=== PATIENT | male | born 2000 | race Hispanic/Latino ===

== ENCOUNTER 2019-09-19 15:06 | Emergency (ER) | payer SELFPAY ==
[~2019-09-19] VITALS: Ht 170.2 cm; Wt 65.8 kg
--- OUTSIDE RECORDS SUMMARY | 2019-09-19 15:09 | XMS REPORT | Continuity of Care Document ---
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 NORMAL RATIO (test code = INR) 1.0 0.8-1.2 N The therapeutic range for oral anticoagulant therapy formost indications is an international normalized ratio (INR)of between 2.0 and 3.0. The recommended therapeutic INRrange for various clinical situations is listed below: Clinical Situation INR range Pulmonary e mbolism treatment (2.0-3.0)Venous thrombosis treatmentVenous thrombosis prophylaxis (high risk surgery)Prevention of systemic embolism from: Acute myocardial infarction Valvular heart disease Atrial fibrillation Mechanical prosthetic heart valves (2.5-3.5) IS PATIENT ON ANTICOAGULANTS? NTHROMBOPLASTIN TIME [id number] 15:25:00* Test Item Value Reference Range Interpretation Comments THROMBOPLASTIN TIME PARTIAL (test code = PTT) 31.9 seconds 25.0-36. 5 N IS PATIENT ON ANTICOAGULANTS? NCBC W/O [id number] 15:08:00* Test Item Value Reference Range Interpretation Comments WHITE BLOOD CELL (test code = WBC) K/mm3 4.5-12.5 RED BLOOD CELL (test code = RBC) mill/mm3 4.0-5.8 HEMOGLOBIN (test code = HGB) 15.5 gram/dL 13.0-17.5 N HEMATOCRIT (test code = HCT) 47.3 % 42.0-52.0 N MEAN CELL VOLUME (test code = MCV) fL 80-98 MEAN CELL HGB (test code = MCH) picogram 27.0-33.0 MEAN CELL HGB CONCETRATION (test code = MCHC) gram/dL 33.0-36. 0 RED CELL DISTRIBUTION WIDTH (test code = RDW) % 11.6-16. 2 PLATELET COUNT (test code = PLT) K/mm3 150-450 MEAN PLATELET VOLUME (test code = MPV) fL 6.7-11.0 CBC W/O [id number] 15:08:00* Test Item Value Reference Range Interpretation Comments WHITE BLOOD CELL (test code = WBC) 16.7 K/mm3 4.5-12.5 H RED BLOOD CELL (test code = RBC) 4.98 mill/mm3 4.0-5.8 N HEMOGLOBIN (test code = HGB) 15.5 gram/dL 13.0-17.5 N HEMATOCRIT (test code = HCT) 47.3 % 42.0-52.0 N MEAN CELL VOLUME (test code = MCV) 95.0 fL 80-98 N MEAN CELL HGB (test code = MCH) 31.1 picogram 27.0-33.0 N MEAN CELL HGB CONCETRATION (test code = MCHC) 32.8 gram/dL 33.0-36. 0 L RED CELL DISTRIBUTION WIDTH (test code = RDW) 12.7 % 11.6-16. 2 N PLATELET COUNT (test code = PLT) 172 K/mm3 150-450 N MEAN PLATELET VOLUME (test code = MPV) 11.9 fL 6.7-11.0 H [id number] 14:47:00* Test Item Value Reference Range Interpretation Comments GLUBED (test code = GLUBED) 126 mg/dL 74-106 H Performed by certified foil stamp operator at [facility] - XR KNEE 3 V [id number] 13:33:00 FAX: Lauren Blackwood DO [place]: [address]: REG Name: Frantz THADARIANAMARIO [facility] : [birth year] Age/S: 18/M [address] [facility] Unit #: [id number] Loc: [place] [address] Phys: Lauren Blackwood DO Acct: [id number] Dis Date: Status: REG ER PHONE #: [phone] Exam Date: 01/25/2019 1326 FAX #: [phone] Reason: KNEE PAIN EXAMS: CPT CODE: [id number] XR KNEE 3 V RT [id number] REASON FOR EXAM: KNEE PAIN EXAM ORDER DATE: 01/25/2019 12:55 PM Ordering Drew: Lauren Balckwood DO PROCEDURE: - XR KNEE 3 V RT FINDINGS: 3 views of the right knee were obtained. The osseous structures are unremarkable in size and shape. The joint spaces are ma intained. No evidence of fracture. No evidence of joint effusion. The patella is intact IMPRESSION: Unremarkable right knee * * at 1681 Reported and signed by: Josemanuel Mahoney M.D. CC: Boubacar Blackwood DO Technologist: RT GREG(R) Trnscrd Date/Time/By: 01/25/2019 (4070) : By: MorganL Orig Print D/T: S: 01/25/2019 (6229) PAGE 1 Signed Report - XR ANKLE 3 + V [id number] 13:33:00 FAX: Lauren Blackwood DO [place]: [address]: REG Name: Frantz THADARIANAMARIO [facility] : [birth year] 00 Age/S: 18/M [address] [facility] Unit #: [id number] Loc: [place] [address] Phys: Lauren Blackwood DO Acct: [id number] Dis Date: Status: REG ER PHONE #: [phone] Exam Date: 01/25/2019 1328 FAX #: [phone] Reason: ANKLE PAIN EXAMS: CPT CODE: [id number] XR ANKLE 3 + V RT 10207 REASON FOR EXAM: ANKLE PAIN EXAM ORDER DATE: 01/25/2019 12:55 PM Ordering Drew: Lauren Blackwood DO PROCEDURE: - XR ANKLE 3 + V RT FINDINGS: 3 views of the right ankle were obtained. The osseous structures are unremarkable in size and shape. The joint spaces are maintained. No evidence of fracture. The syndesmosis is intact. IMPRESSION: Unremarkable right ankle at 1333 Reported and signed by: Josemanuel Mahoney M.D. CC: Lauren Blackwood DO Technologist: RT GREG(R) Trnscrd Date/Time/By: 01/25/2019 (0465) : By: MorganL Orig Print D/T: S: 01/25/2019 (8903) PAGE 1 Signed Report - XR PELVIS 1/2 [id number] 13:33:00 FAX: Lauren Blackwood DO [place]: St: REG Name: MARIO HUSTON [facility] : [birth year] 00 Age/S: 18/M [address] [facility] Unit #: [id number] Loc: [place] [address] Phys: Lauren Blackwood DO Acct: [id number] Dis Date: Status: REG ER PHONE #: [phone] Exam Date: 01/25/2019 1325 FAX #: [phone] Reason: PELVIC PAIN EXAMS: CPT CODE: [id number] XR PELVIS 1/2 VIEWS 58223 REASON FOR EXAM: PELVIC PAIN EXAM ORDER DATE: 01/25/2019 12:55 PM Ordering Drew: Lauren Blackwood DO PROCEDURE: - XR PELVIS 1/2 VIEWS FINDINGS: 1 view of the pelvis was obtained. The osseous structures are unremarkable in size and shape. The joint spaces are maintained. No ev idence of fracture. There is normal alignment of the hip joint. The sacr oiliac joints are grossly intact IMPRESSION: Unremarkabl e pelvis at 1333 Reported and signed by: Josemanuel Mahoney M.D. CC: Lauren Blackwood DO Technologist: RT GREG(Andrew) Trnscrd Date/Time/By: (9681) : By: MorganL Orig Print D/T: S: 01/25/2019 (5480) PAGE 1 Signed Report - XR CHEST 1 [id number] 13:32:00 FAX: Lauren Blackwood DO [place]: St: REG Name: MARIO HUSTON [facility] : [birth year] 00 Age/S: 18/M [address] [facility] Unit #: [id number] Loc: [place] [address] Phys: Lauren Blackwood DO Acct: [id number] Dis Date: Status: REG ER PHONE #: [phone] Exam Date: 01/25/2019 1324 FAX #: [phone] Reason: CHEST PAIN EXAMS: CPT CODE: [id number] XR CHEST 1 V 92895 REASON FOR EXAM: CHEST PAIN EXAM ORDER DATE: 01/25/2019 12:55 PM Ordering Drew: Lauren Blackwood DO PROCEDURE: - XR CHEST 1 V CO MPARISON: FINDINGS: Portable AP frontal view of the chest obtaine d at 1:24 PM shows clear lungs without evidence of consolidation. There is no evidence of effusion. The heart size is within normal limits. Pu lmonary vasculatures are unremarkable. IMPRESSION: No active di sease. at 8568 * * Reported and signed by: Josemanuel Mahoney M.D. CC: Lauren Blackwood DO Technologist: MARIO JUDD RT(R) Trncaesarrd Date/Time/By: 2018 (5942) : By: Sheila Orig Print D/T: S: 01/25/2019 (5719) PAGE 1 Signed Report - CT C-SPINE W/O [id number] 13:21:00 Name: MARIO HURST [facility] : 2000 Age/S: 18 / M [address] [facility] Unit #: [id number] Loc: [place] [address] Phys: Lauren Blackwood DO Acct: [id number] Dis Date: Status: REG ER PHONE #: [phone] Exam Date: 01/25/2019 1312 FAX #: [phone] Reason: Neck Pain EXAMS: CPT CODE: [id number] CT C-SPINE W/O CONTRAST 06239 REASON FOR EXAM: Neck Pain EXAM ORDER DATE: 01/25/2019 12:55 PM Ordering Drew: Lauren Blackwood DO PROCEDURE: - CT C-SPINE W/O CONTRAST FINDINGS: CT images of the cervical spine were obtained without IV contrast at 2.5mm. Reconstructed coronal and sagittal images were also provided. Dose modulation, iterative reconstruction, and/or weight based adjustment of the MA/KV was utilized to reduce the radiation dose to as low as reasonably achievable. The osseous structures are intact. The central canal is patent. The disc spaces are maintained. IMPRESSION: Unremarkable cervical spine. Chronic p roximal left clavicular fracture. Chronic left posterior first rib fract ure at 1321 Reported and signed by: Josemanuel Mahoney M.D. CC: Lauren Blackwood DO Technologist:RT Khai(R),CT CTDI: DLP: Trnscb Date/Time: 01/25/2019 (1321) Sheila Orig Print D/T: S: 01/25/2019 (4932) PAGE 1 Signed Report - CT HEAD/BRAIN W/O [id number] 13:14:00 [facility] 2000 Age/S: 18 / M [address] Unit #: [id number] Loc: [place] [address] Phys: Lauren Blackwood DO Acct: [id number] Dis Date: Status: REG ER PHONE #: [phone] Exam Date: 01/25/2019 1312 FAX #: [phone] Reason: HEADACHE EXAMS: CPT CODE: [id number] CT HEAD/BRAIN W/O CONT 29935 REASON FOR EXAM: HEADACHE EXAM ORDER DATE: 01/25/2019 12:55 PM Ordering MAngel: Lauren Blackwood DO PROCEDURE: - CT HEAD/BRAIN W/O CONT COMPARISON: FINDINGS: CT images of the brain were obtained without IV contrast. Dose modulation, iterative reconstruction, and/or weight based adjustment of the MA/KV was utilized to reduce the radiation dose to as low as reasonably achievable. The brain parenchyma is within normal limits. The cabrales-white matter delineation is unremarkable. The ventricles, cisterns, and sulci are unremarkable. There is no evidence of hemorrhage, mass, mass effect. There is no evidence of acute or old infarct. The calvarium is intact. IMPRESSION: Unremarkable brain. at 1314 Reported and signed by: Josemanuel Mahoney M.D. CC: Lauren Blackwood DO Technologist:Danette Vazquez,RT(R),CT CTDI: DLP: Trnscb Date/Time: 01/25/2019 (5295) [email or web address] Orig Print D/T: S: 01/25/2019 (4347) PAGE 1 Signed Report BASIC METABOLIC [id number] 06:11:00* Test Item Value Reference Range Interpretation Comments SODIUM (test code = NA) 140 mmol/L 136-145 N POTASSIUM (test code = K) 3.7 mmol/L 3.5-5.1 N CHLORIDE (test code = CL) 105.0 mmol/L 98-107 N CARBON DIOXIDE (test code = CO2) 24.0 mmol/L 21-32 N ANION GAP (test code = GAP) 14.7 10-20 N GLUCOSE (test code = GLU) 103 mg/dL 74-106 N BLOOD UREA NITROGEN (test code = BUN) 9 mg/dL 7-18 N GLOMERULAR FILTRATION RATE (test code = GFR) > 60 mL/min >=60 Estimated GFR by using Modified MDRD formula.Chronic kidney disease is defined as either kidney damageor GFR <60 mL/min/1.73 m2 for >3 months. CREATININE (test code = CREAT) 0.90 mg/dL 0.7-1.3 N BUN/CREATININE RATIO (test code = BUN/CREA) 9.8 10-20 L CALCIUM (test code = CA) 8.7 mg/dL 8.5-10.1 N HEPATIC FUNCTION [id number] 06:11:00* Test Item Value Reference Range Interpretation Comments TOTAL PROTEIN (test code = PROT) 7.8 gram/dL 6.4-8.2 N ALBUMIN (test code = ALB) 4.6 g/dL 3.4-5.0 N GLOBULIN (test code = GLOB) 3.2 gram/dL 2.7-4.2 N ALBUMIN/GLOBULIN RATIO (test code = A/G) 1.4 0.75-1.50 N BILIRUBIN TOTAL (test code = BILT) 0.30 mg/dL 0.0-1.0 N BILIRUBIN DIRECT (test code = BILD) 0.10 mg/dL 0.0-0.20 N SGOT/AST (test code = AST) 16 IUnit/L 15-37 N SGPT/ALT (test code = ALT) 10 IUnit/L 20-69 L ALKALINE PHOSPHATASE TOTAL (test code = ALKP) 124 IUnit/L 65-260 N [id number] 06:11:00* Test Item Value Reference Range Interpretation Comments ACETAMINOPHEN (test code = ACET) < 10 mcg/mL 10-30 L A RANGE OF 10-30 mcg/mL IS A THERAPEUTIC RANGE. TOXIC CONCENTRATIONS: >150 mcg/mL AT 4 HOURS AFTER INGESTION >= 50 mcg/mL AT 12 HOURS AFTER INGESTION [id number] 06:11:00* Test Item Value Reference Range Interpretation Comments SALICYLATE (test code = MARIA LUISA) < 1.7 mg/dL 2.8-20.0 L [id number] 06:11:00* Test Item Value Reference Range Interpretation Comments ALCOHOL (test code = ALC) 35 mg/dL 0.0-3.0 H -- INTERPRETIVE DATA NOTE: POSITIVE SCREENING RESULTS SHOULD BE CONSIDERED PRESUMPTIVE.WHEN COLLECTED FOR MEDICAL PURPOSES ONLY. SPECIMEN WILL NOTBE COLLECTED BY CHAIN OF CUSTODY.IF A CONFIRMATION OF POSITIVE RESULTS IS DESIRED, ACONFIRMATION TEST MUST BE REQUESTED BY THE PHYSICIAN AT ANADDITIONAL CHARGE TO THE PATIENT. BASIC METABOLIC [id number] 06:02:00* Test Item Value Reference Range Interpretation Comments SODIUM (test code = NA) 140 mmol/L 136-145 N POTASSIUM (test code = K) 3.7 mmol/L 3.5-5.1 N CHLORIDE (test code = CL) 105.0 mmol/L 98-107 N CARBON DIOXIDE (test code = CO2) mmol/L 21-32 ANION GAP (test code = GAP) 10-20 GLUCOSE (test code = GLU) mg/dL 74-106 BLOOD UREA NITROGEN (test code = BUN) mg/dL 7-18 GLOMERULAR FILTRATION RATE (test code = GFR) mL/min >=60 CREATININE (test code = CREAT) mg/dL 0.7-1.3 BUN/CREATININE RATIO (test code = BUN/CREA) 10-20 CALCIUM (test code = CA) mg/dL 8.5-10.1 HEPATIC FUNCTION [id number] 06:02:00* Test Item Value Reference Range Interpretation Comments TOTAL PROTEIN (test code = PROT) gram/dL 6.4-8.2 ALBUMIN (test code = ALB) g/dL 3.4-5.0 GLOBULIN (test code = GLOB) gram/dL 2.7-4.2 ALBUMIN/GLOBULIN RATIO (test code = A/G) 0.75-1.50 BILIRUBIN TOTAL (test code = BILT) mg/dL 0.0-1.0 BILIRUBIN DIRECT (test code = BILD) mg/dL 0.0-0.20 SGOT/AST (test code = AST) IUnit/L 15-37 SGPT/ALT (test code = ALT) IUnit/L 20-69 ALKALINE PHOSPHATASE TOTAL (test code = ALKP) IUnit/L 65-260 [id number] 06:02:00* Test Item Value Reference Range Interpretation Comments ACETAMINOPHEN (test code = ACET) mcg/mL 10-30 [id number] 06:02:00* Test Item Value Reference Range Interpretation Comments SALICYLATE (test code = MARIA LUISA) mg/dL 2.8-20.0 [id number] 06:02:00* Test Item Value Reference Range Interpretation Comments ALCOHOL (test code = ALC) mg/dL 0-3 CBC W/O [id number] 05:57:00* Test Item Value Reference Range Interpretation Comments WHITE BLOOD CELL (test code = WBC) 11.1 K/mm3 4.5-12.5 N RED BLOOD CELL (test code = RBC) 5.02 mill/mm3 4.0-5.8 N HEMOGLOBIN (test code = HGB) 15.6 gram/dL 13.0-17.5 N HEMATOCRIT (test code = HCT) 48.5 % 42.0-52.0 N MEAN CELL VOLUME (test code = MCV) 96.6 fL 80-98 N MEAN CELL HGB (test code = MCH) 31.1 picogram 27.0-33.0 N MEAN CELL HGB CONCETRATION (test code = MCHC) 32.2 gram/dL 33.0-36. 0 L RED CELL DISTRIBUTION WIDTH (test code = RDW) 13.0 % 11.6-16. 2 N PLATELET COUNT (test code = PLT) 149 K/mm3 150-450 L MEAN PLATELET VOLUME (test code = MPV) 12.4 fL 6.7-11.0 H CBC W/O [id number] 05:52:00* Test Item Value Reference Range Interpretation Comments WHITE BLOOD CELL (test code = WBC) K/mm3 4.5-12.5 RED BLOOD CELL (test code = RBC) mill/mm3 4.0-5.8 HEMOGLOBIN (test code = HGB) 15.6 gram/dL 13.0-17.5 N HEMATOCRIT (test code = HCT) 48.5 % 42.0-52.0 N MEAN CELL VOLUME (test code = MCV) fL 80-98 MEAN CELL HGB (test code = MCH) picogram 27.0-33.0 MEAN CELL HGB CONCETRATION (test code = MCHC) gram/dL 33.0-36. 0 RED CELL DISTRIBUTION WIDTH (test code = RDW) % 11.6-16. 2 PLATELET COUNT (test code = PLT) K/mm3 150-450 MEAN PLATELET VOLUME (test code = MPV) fL 6.7-11.0 - CT C-SPINE W/O [id number] 05:37:00 Name: MARIO HURST [facility] : 2000 Age/S: 17 / M [address] [facility] Unit #: [id number] Loc: [place] [address] Phys: Lauren Blackwood DO Acct: [id number] Dis Date: Status: REG ER PHONE #: [phone] Exam Date: 10/31/2018 0517 FAX #: [phone] Reason: Neck Pain EXAMS: CPT CODE: [id number] CT C-SPINE W/O CONTRAST 30275 EXAM: - CT C-SPINE W/O CONTRAST HISTORY: Neck pain. TECHNIQUE: Axial tomograms through the cervical spine were obtained without intravenous contrast. Sagittal and coronal reformatted images are provided. This exam was performed according to our departmental dose-optimization program, which includes automated exposure control, adjustment of the mA and/or kV according to patient size and/or use of iterative reconstruction technique. COMPARISON: July 28, 2017. FINDINGS: Vertebral heights are maintained. No definite acute fracture or subluxation. The prevertebral soft tissues are within normal limits. The visualized soft tissues of the neck show no significant abnormalities. Evaluation is limit ed due to suboptimal position and motion. Clinical correlation is recommen ded. Consider additional evaluation as clinically warranted. IMPRESSION: No acute osseous abnormality with other findings as above. at 0537 Reported and signed by: Mk Santamaria MD CC: Lauren Blackwood DO Technologist :Venu Spencer, RT(R)(CT) CTDI: DLP: Trnscb Date/Time: 10/12 (0537) [email or web address] Orig Print D/T: S: 10/31/2018 (05 40) PAGE 1 Signed Report - CT HEAD/BRAIN W/O [id number] 05:32:00 Name: MARIO HURST [facility] : 2000 Age/S: 17 / M [address] Unit #: [id number] Loc: [place] [address] Phys: Lauren Blackwood DO Acct: [id number] Dis Date: Status: REG ER PHONE #: [phone] Exam Date: 10/31/2018516 FAX #: [phone] Reason: HEADACHE EXAMS: CPT CODE: [id number] CT HEAD/BRAIN W/O CONT 78693 EXAM: - CT HEAD/BRAIN W/O CONT HISTORY: Headache. TECHNIQUE: Axial tomograms through the brain were obtained without intravenous contrast. This exam was performed according to our departmental dose-optimization program, which includes automated exposure control, adjustment of the mA and/or kV according to patient size and/or use of iterative reconstruction technique. COMPARISON: July 28, 2017. FINDINGS: There is no intracranial hemorrhage, mass, or mass effect. The ventricular system and sulci are age-appropriate. There is no evidence of acute infarction. The osseous structures and orbits, show no significant abnormalities. The visualized sinuses are relatively clear. The soft tissues are unremarkable. IMPRESSION: No acute intracranial abnormality with no evidence of intracranial hemorrhage. at 0532 Reported and signed by: Mk Santamaria MD CC: Lauren Blackwood DO Technologist:RT Kenan(R)(CT) CTDI: DLP: Trnscb Date/Time: 10/31/2018 (0532) [email or web address] Orig Print D/T: S: 10/31/2018 (0535) PAGE 1 Signed Report [id number] 05:29:00* Test Item Value Reference Range Interpretation Comments GLUBED (test code = GLUBED) 100 mg/dL 74-106 N Performed by certified foil stamp operator at [facility] BASIC METABOLIC [id number] 09:18:00* Test Item Value Reference Range Interpretation Comments SODIUM (test code = NA) 139 mmol/L 136-145 N POTASSIUM (test code = K) 3.7 mmol/L 3.5-5.1 N CHLORIDE (test code = CL) 104.0 mmol/L 98-107 N CARBON DIOXIDE (test code = CO2) 26.0 mmol/L 21-32 N ANION GAP (test code = GAP) 12.7 10-20 N GLUCOSE (test code = GLU) 100 mg/dL 74-106 N BLOOD UREA NITROGEN (test code = BUN) 9 mg/dL 7-18 N GLOMERULAR FILTRATION RATE (test code = GFR) > 60 mL/min >=60 Estimated GFR by using Modified MDRD formula.Chronic kidney disease is defined as either kidney damageor GFR <60 mL/min/1.73 m2 for >3 months. CREATININE (test code = CREAT) 1.10 mg/dL 0.7-1.3 N BUN/CREATININE RATIO (test code = BUN/CREA) 8.2 10-20 L CALCIUM (test code = CA) 10.1 mg/dL 8.5-10.1 N HEPATIC FUNCTION [id number] 09:18:00* Test Item Value Reference Range Interpretation Comments TOTAL PROTEIN (test code = PROT) 9.3 gram/dL 6.4-8.2 H ALBUMIN (test code = ALB) 5.2 g/dL 3.4-5.0 H GLOBULIN (test code = GLOB) 4.1 gram/dL 2.7-4.2 N ALBUMIN/GLOBULIN RATIO (test code = A/G) 1.3 0.75-1.50 N BILIRUBIN TOTAL (test code = BILT) 0.50 mg/dL 0.0-1.0 N BILIRUBIN DIRECT (test code = BILD) 0.15 mg/dL 0.0-0.20 N SGOT/AST (test code = AST) 19 IUnit/L 15-37 N SGPT/ALT (test code = ALT) 12 IUnit/L 20-69 L ALKALINE PHOSPHATASE TOTAL (test code = ALKP) 138 IUnit/L 65-260 N [id number] 09:18:00* Test Item Value Reference Range Interpretation Comments LIPASE (test code = LIP) 92 U/L 73.0-393.0 N [id number] 09:18:00* Test Item Value Reference Range Interpretation Comments ALCOHOL (test code = ALC) 41 mg/dL 0.0-3.0 H -- INTERPRETIVE DATA NOTE: POSITIVE SCREENING RESULTS SHOULD BE CONSIDERED PRESUMPTIVE.WHEN COLLECTED FOR MEDICAL PURPOSES ONLY. SPECIMEN WILL NOTBE COLLECTED BY CHAIN OF CUSTODY.IF A CONFIRMATION OF POSITIVE RESULTS IS DESIRED, ACONFIRMATION TEST MUST BE REQUESTED BY THE PHYSICIAN AT ANADDITIONAL CHARGE TO THE PATIENT. URINALYSIS [id number] 09:10:00* Test Item Value Reference Range Interpretation Comments UA COLOR (test code = COLU) LIGHT YELLOW YELLOW UA APPEARANCE (test code = APPU) CLEAR CLEAR UA GLUCOSE DIPSTICK (test code = DGLUU) NEGATIVE mg/dL NEGATIVE UA BILIRUBIN DIPSTICK (test code = BILU) NEGATIVE NEGATIVE UA KETONE DIPSTICK (test code = KETU) NEGATIVE mg/dL NEGATIVE UA SPECIFIC GRAVITY (test code = SGU) 1.010 1.001-1.035 UA BLOOD DIPSTICK (test code = DOREEN) TRACE NEGATIVE UA PH DIPSTICK (test code = YO) 5.5 5.0-8.0 UA PROTEIN DIPSTICK (test code = PROU) TRACE (15) mg/dL Neg-15 UA UROBILINIOGEN DIPSTICK (test code = URO) 0.2 mg/dL 0.0-0.2 UA NITRITE DIPSTICK (test code = TIARA) NEGATIVE NEGATIVE UA LEUKOCYTE ESTERASE W REFLEX (test code = LEUUR) NEGATIVE NEG ATIVE UA WBC (test code = WBCU) 0-5 per HPF 0-5 UA RBC (test code = RBCU) 0-3 #/HPF 0-5 UA EPITHELIAL CELLS (test code = EPIU) FEW per HPF FEW UA BACTERIA (test code = BACU) FEW #/HPF NONE A UA HYALINE CAST (test code = HYALU) 0-2 #/LPF 0-5 UA MUCUS (test code = MUCU) FEW #/LPF FEW Urine Source? Clean CatchURINALYSIS [id number] 09:09:00* Test Item Value Reference Range Interpretation Comments UA COLOR (test code = COLU) LIGHT YELLOW YELLOW UA APPEARANCE (test code = APPU) CLEAR CLEAR UA GLUCOSE DIPSTICK (test code = DGLUU) NEGATIVE mg/dL NEGATIVE UA BILIRUBIN DIPSTICK (test code = BILU) NEGATIVE NEGATIVE UA KETONE DIPSTICK (test code = KETU) NEGATIVE mg/dL NEGATIVE UA SPECIFIC GRAVITY (test code = SGU) 1.010 1.001-1.035 UA BLOOD DIPSTICK (test code = DOREEN) TRACE NEGATIVE UA PH DIPSTICK (test code = YO) 5.5 5.0-8.0 UA PROTEIN DIPSTICK (test code = PROU) TRACE (15) mg/dL Neg-15 UA UROBILINIOGEN DIPSTICK (test code = URO) 0.2 mg/dL 0.0-0.2 UA NITRITE DIPSTICK (test code = TIARA) NEGATIVE NEGATIVE UA LEUKOCYTE ESTERASE W REFLEX (test code = LEUUR) NEGATIVE NEG ATIVE UA WBC (test code = WBCU) per HPF 0-5 UA RBC (test code = RBCU) per HPF 0-5 UA EPITHELIAL CELLS (test code = EPIU) per HPF Few UA BACTERIA (test code = BACU) per HPF NONE Urine Source? Clean CatchBASIC METABOLIC [id number] 09:08:00* Test Item Value Reference Range Interpretation Comments SODIUM (test code = NA) 139 mmol/L 136-145 N POTASSIUM (test code = K) 3.7 mmol/L 3.5-5.1 N CHLORIDE (test code = CL) 104.0 mmol/L 98-107 N CARBON DIOXIDE (test code = CO2) mmol/L 21-32 ANION GAP (test code = GAP) 10-20 GLUCOSE (test code = GLU) mg/dL 74-106 BLOOD UREA NITROGEN (test code = BUN) mg/dL 7-18 GLOMERULAR FILTRATION RATE (test code = GFR) mL/min >=60 CREATININE (test code = CREAT) mg/dL 0.7-1.3 BUN/CREATININE RATIO (test code = BUN/CREA) 10-20 CALCIUM (test code = CA) mg/dL 8.5-10.1 HEPATIC FUNCTION [id number] 09:08:00* Test Item Value Reference Range Interpretation Comments TOTAL PROTEIN (test code = PROT) gram/dL 6.4-8.2 ALBUMIN (test code = ALB) g/dL 3.4-5.0 GLOBULIN (test code = GLOB) gram/dL 2.7-4.2 ALBUMIN/GLOBULIN RATIO (test code = A/G) 0.75-1.50 BILIRUBIN TOTAL (test code = BILT) mg/dL 0.0-1.0 BILIRUBIN DIRECT (test code = BILD) mg/dL 0.0-0.20 SGOT/AST (test code = AST) IUnit/L 15-37 SGPT/ALT (test code = ALT) IUnit/L 20-69 ALKALINE PHOSPHATASE TOTAL (test code = ALKP) IUnit/L 65-260 [id number] 09:08:00* Test Item Value Reference Range Interpretation Comments LIPASE (test code = LIP) U/L 73.0-393.0 [id number] 09:08:00* Test Item Value Reference Range Interpretation Comments ALCOHOL (test code = ALC) mg/dL 0-3 CBC W/O [id number] 08:58:00* Test Item Value Reference Range Interpretation Comments WHITE BLOOD CELL (test code = WBC) 12.6 K/mm3 4.5-12.5 H RED BLOOD CELL (test code = RBC) 5.41 mill/mm3 4.0-5.8 N HEMOGLOBIN (test code = HGB) 16.8 gram/dL 13.0-17.5 N HEMATOCRIT (test code = HCT) 51.8 % 42.0-52.0 N MEAN CELL VOLUME (test code = MCV) 95.7 fL 80-98 N MEAN CELL HGB (test code = MCH) 31.1 picogram 27.0-33.0 N MEAN CELL HGB CONCETRATION (test code = MCHC) 32.4 gram/dL 33.0-36. 0 L RED CELL DISTRIBUTION WIDTH (test code = RDW) 13.2 % 11.6-16. 2 N PLATELET COUNT (test code = PLT) 227 K/mm3 150-450 N MEAN PLATELET VOLUME (test code = MPV) 11.4 fL 6.7-11.0 H CBC W/O [id number] 08:57:00* Test Item Value Reference Range Interpretation Comments WHITE BLOOD CELL (test code = WBC) K/mm3 4.5-12.5 RED BLOOD CELL (test code = RBC) mill/mm3 4.0-5.8 HEMOGLOBIN (test code = HGB) 16.8 gram/dL 13.0-17.5 N HEMATOCRIT (test code = HCT) 51.8 % 42.0-52.0 N MEAN CELL VOLUME (test code = MCV) fL 80-98 MEAN CELL HGB (test code = MCH) picogram 27.0-33.0 MEAN CELL HGB CONCETRATION (test code = MCHC) gram/dL 33.0-36. 0 RED CELL DISTRIBUTION WIDTH (test code = RDW) % 11.6-16. 2 PLATELET COUNT (test code = PLT) K/mm3 150-450 MEAN PLATELET VOLUME (test code = MPV) fL 6.7-11.0
--- NOTE | 2019-09-19 15:53 | Emergency Department Note ---
History of Present Illnes History of Present Illness Chief Complaint: Skin Rash or Abscess History of Present Illness This is a 18 year old male .c/o poss insect bite to left middle dorsal finger and left elbow on set 3 days Arrival Mode: Car Onset (how long ago): day(s) (3 days) Radiation: non-radiation, back, neck, extremity, abdomen, periumbilical, flank, proximal, distal, other Severity: mild Onset quality: gradual Duration (how long): day(s) (3 days) Timing of current episode: constant Progression: unchanged Context: recent illness, recent surgery, recent immobilization, recent travel, trauma/injury, new medications, hx of DVT/PE, non-compliance w/ medications, other Relieving factors: none Exacerbating factors: none Treatments prior to arrival: none Past Medical/Family History Physician Review I have reviewed the patient's past medical and family history. Any updates have been documented here. Past Medical History Other Medical History: none Other Surgery: none Social History Smoking Cessation: Current every day smoker Alcohol Use: Social Any Illegal Drug Use: No TB Exposure/Symptoms: No Physically hurt or threatened: No Family History Family history of heart diseas: No Other Any Pre-Existing Lines (PICC,: No Review of Systems Review of Systems Constitutional: no symptoms EENTM: no symptoms Cardiovascular: no symptoms Respiratory: no symptoms Gastrointestinal: no symptoms Genitourinary: no symptoms Musculoskeletal: no symptoms Neurological: no symptoms, other (This is a 18 year old male .c/o poss insect bite to left middle dorsal finger and left elbow on set 3 days) Psychological: no symptoms Endocrine: no symptoms Hematological/Lymphatic: no symptoms Review of other systems All other systems reviewed and negative. Physical Exam Related Data Allergies: Coded Allergies: No Known Allergies (Unverified , 09/19/19) Vital signs reviewed: Yes Physical Exam CONSTITUTIONAL Constitutional: well-developed, well-nourished HENT HENT: normocephalic, atraumatic, oropharynx clear/moist, nose normal HENT L/R: left ext ear normal, right ext ear normal EYES Eyes: PERRL, conjunctivae normal NECK Neck: ROM normal PULMONARY Pulmonary: effort normal, breath sounds normal CARDIOVASCULAR Cardiovascular: regular rhythm, heart sounds normal, capillary refill normal, normal rate GASTROINTESTINAL Abdominal: soft, nontender, bowel sounds normal GENITOURINARY Genitourinary: exam deferred SKIN Skin: warm, dry, lesion (sm x 2 one on dorsal middle finger and one on left elbow - lesions pimple size ), other (no tensynivitis suspected at this time minimal redness to site noted - pt sts sm bump came up and he popped it open and drained sm amount of puss ) MUSCULOSKELETAL Musculoskeletal: ROM normal NEUROLOGICAL Neurological: alert, oriented x 3, no gross motor or sensory deficits PSYCHOLOGICAL Psychological: mood/affect normal, judgement normal Exam - additional comments This is a 18 year old male .c/o poss insect bite to left middle dorsal finger and left elbow on set 3 days Critical Care Time Subsequent provider I assumed direction of critical care for this patient from another provider of my specialty. Assessment & Plan Reassessment Reassessment This is a 18 year old male .c/o poss insect bite to left middle dorsal finger and left elbow on set 3 days - pimple size - no limited rom no cellulitis noted discussed plan of care and wound care instructions and f/u instructions no need for i&d at this time Assessment & Plan Final Impression: (1) Abscess Assessment & Plan discussed plan of care and f/u instructions and wound care instructions s&s of infection and when and if to return plan 1. warm soaks three times a day for 20mins 2. tylenol and motrin as needed 3. return to ed as needed 4. follow up with Dr Lovell in 1-2 days without fail 5. bactrim ds and bactroband Depart Disposition: HOME, SELF-CARE [facility] Sep 19, 2019 15:53
== END 2019-09-19 19:59 | disposition home or self-care (01) ==
LOC: ER 15:06
DX: L02.512 Cutaneous abscess of left hand (principal); L02.414 Cutaneous abscess of left upper limb; W57.XXXA Bitten or stung by nonvenomous insect and other nonvenomous arthropods, initial encounter
CPT/HCPCS: 99283

== ENCOUNTER 2021-05-28 17:14 | Emergency (ER) | payer SELFPAY ==
[~2021-05-28] VITALS: Ht 170.2 cm; Wt 65.8 kg
[2021-05-28] MEDS ORDERED: CLEOCIN HCL150 MG PO (17:25)
== END 2021-05-28 17:38 | disposition home or self-care (01) ==
LOC: ER 17:18
DX: L03.115 Cellulitis of right lower limb (principal); M79.604 Pain in right leg
CPT/HCPCS: 99282

== ENCOUNTER 2023-10-14 13:46 | Emergency (ER) | payer SELFPAY ==
[~2023-10-14] VITALS: Ht 170.2 cm; Wt 72.6 kg
[~2023-10-14 13:46] MED LIST: CLEOCIN HCL150 MG PO
[2023-10-14 13:47] VITALS: PULSE 79; RESP 18; TEMP 98.2; O2SAT 100
[2023-10-14 14:23] LABS: BASOPHILS # (AUTO) 0.1 (0.0-0.1); BASOPHILS % 0.8 % (0.0-1.0); EOSINOPHILS # (AUTO) 0.2 (0.0-0.4); EOSINOPHILS % 1.6 % (0.0-6.0); HEMATOCRIT 46.4 % (38.2-49.6); HEMOGLOBIN 15.5 g/dL (14.0-18.0); MEAN CORPUSCULAR HEMOGLOBIN 32.4 pg (28-32); MEAN CORPUSCULAR HGB CONC 33.4 g/dL (31-35); MEAN CORPUSCULAR VOLUME 97.1 fL (81-99); MONOCYTES # (AUTO) 0.8 (0.2-0.8); MONOCYTES % 6.1 % (4.4-11.3); NEUTROPHILS # (AUTO) 8.3 (2.1-6.9); NEUTROPHILS % 66.9 % (38.7-80.0); PLATELET COUNT 220 x10e3/uL (140-360); RED BLOOD COUNT 4.78 x10e6/uL (4.3-5.7); WHITE BLOOD COUNT 12.43 x10e3/uL (4.8-10.8)
[2023-10-14] MEDS: SODIUM CHLORIDE 0.9% 1000ML 1,000 ML IV ONE ×2 (14:24)
[2023-10-14 15:10] LABS: ALBUMIN 3.9 g/dL (3.5-5.0); ALBUMIN/GLOBULIN RATIO 1.4 (0.8-2.0); ANION GAP 14.7 mmol/L (8-16); BILIRUBIN,TOTAL 0.3 mg/dL (0.2-1.2); CALCIUM 8.8 mg/dL (8.4-10.2); CREATININE, SERUM 0.8 mg/dL (0.72-1.25); POTASSIUM 3.7 mmol/L (3.5-5.1); TOTAL PROTEIN 6.6 g/dL (6.5-8.1)
== END 2023-10-14 15:32 | disposition home or self-care (01) ==
LOC: ER 13:49
DX: T67.5XXA Heat exhaustion, unspecified, initial encounter (principal); X32.XXXA Exposure to sunlight, initial encounter; Y99.0 Civilian activity done for income or pay
CPT/HCPCS: 36415; 80053; 82550; 85025; 99283; J7030